=== PATIENT | female | born 1985 | race Caucasian/White ===

== ENCOUNTER → 2017-01-22 | Outpatient (REF) | payer OTHER ==
[2017-01-22 15:34] LABS: ALBUMIN 3.9 GM/DL (3.2-5.2); ALBUMIN/GLOBULIN RATIO 1.22 (1.00-1.93); ALKALINE PHOSPHATASE 56 U/L (45-117); ALT/SGPT 14 U/L (12-78); ANION GAP 6 MEQ/L (8-16); AST/SGOT 17 U/L (15-37); BILIRUBIN,TOTAL 0.5 MG/DL (0.2-1.0); BLOOD UREA NITROGEN 4 MG/DL (7-18); CALCIUM LEVEL 9.2 MG/DL (8.5-10.1); CARBON DIOXIDE LEVEL 29 MEQ/L (21-32); CHLORIDE LEVEL 107 MEQ/L (98-107); CORTISOL AM 5.6 UG/DL (4.3-22.4); CREATININE FOR GFR 0.64 MG/DL (0.55-1.02); FOLLICLE STIMULATING HORMONE 8.3 mIU/mL; GLOMERULAR FILTRATION RATE > 60.0 (>60); GLUCOSE, FASTING 81 MG/DL (70-105); POTASSIUM SERUM 4.2 MEQ/L (3.5-5.1); PROGESTERONE < 0.2 NG/ML; SODIUM LEVEL 142 MEQ/L (136-145); TOTAL PROTEIN 7.1 GM/DL (6.4-8.2)
[2017-01-27 00:11] LABS: ESTRONE SERUM 103 pg/mL (.); SEX HORMONE BINDING GLOBULIN 67.1 nmol/L (24.6-122.0)
== END ==
LOC: M LAB REF 14:30
PROVIDERS: ATTEND Obstetrics & Gynecology
DX: N95.9 Unspecified menopausal and perimenopausal disorder (principal)

== ENCOUNTER → 2017-02-18 | Outpatient (CLI) | payer OTHER ==
--- NOTE | 2017-02-18 09:45 | REP ---
Clinical: Infertility . Technique: Transvaginal ultrasound examination. Findings: Normal anteverted uterus measures 8.0 x 3.9 x 4.8 cm. Endometrial complex measures 10.3 mm thickness. Right ovary measures 2.6 x 2.3 x 3.1 cm and includes 12 mm follicle along with eight subcentimeter follicles. Left ovary measures 2.5 x 2.0 x 2.4 cm with three follicles measuring between 11 and 12 mm along with four subcentimeter follicles. Impression: Follicular study as described above. Signed by Gage Juarez MD 02/18/2017 09:36 A
[2017-02-18 10:19] LABS: HCG, SERUM QUANTITATIVE < 1.0 MIU/ML
[2017-02-18 11:17] LABS: LUTEINIZING HORMONE 10.8 mIU/mL; PROGESTERONE 0.3 NG/ML
[2017-02-18 11:18] LABS: FOLLICLE STIMULATING HORMONE 16.7 mIU/mL
== END ==
LOC: M RAD 08:28
PROVIDERS: ATTEND Obstetrics & Gynecology Reproductive Endocrinology
DX: N97.9 Female infertility, unspecified (principal)

== ENCOUNTER → 2017-02-20 | Outpatient (CLI) | payer OTHER ==
--- NOTE | 2017-02-20 09:42 | REP ---
Transvaginal pelvic sonography: History: Infertility. Findings: Uterine dimensions are 8.6 x 4.5 x 4.9 cm. Endometrial stripe is 0.9 cm thick. Tiny microcystic changes are seen in the endometrium. No free fluid is seen. No focal uterine mass is observed. There is a moderate amount of bowel gas visible today. The right ovary dimensions are 3.1 x 1.6 x 2.0 cm. There are eight follicles in the right ovary ranging in size from 0.3-0.5 cm. No larger follicles are seen in the right ovary today. The left ovary measures 4.3 x 2.5 x 2.4 cm. It contains a 1.2 x 1.1 cm follicle and five follicles ranging in size 0.2 to 0.9 cm. Impression: Transvaginal pelvic sonography follicle study as above. Signed by Jeet Thomas MD 02/20/2017 08:14 A
== END ==
LOC: M RAD 06:56
PROVIDERS: ATTEND Obstetrics & Gynecology Reproductive Endocrinology
DX: E28.2 Polycystic ovarian syndrome (principal)

== ENCOUNTER → 2017-02-26 | Outpatient (CLI) | payer OTHER ==
--- NOTE | 2017-02-26 08:50 | REP ---
Pelvic ultrasound with endovaginal imaging for follicle analysis: Right ovary: There are no follicles and a larger than 10 mm. There are four follicles measuring 5-9 mm. The right ovary is normal size measuring 2.8 x 2.3 x 3.0 cm. Left ovary: There are no follicles greater than 10 mm. There are three follicles measuring 2-4 mm. Left ovary is normal size measuring 1.9 x 1.4 x 2.0 cm. The endometrium is not thickened measuring 6.5 mm and has a homogeneous echotexture. The uterus is anteverted and normal size measuring 8.0 x 3.6 x 4.3 cm Signed by Pio Johnston MD 02/26/2017 08:41 A
[2017-02-26 10:38] LABS: LUTEINIZING HORMONE 10.7 mIU/mL; PROGESTERONE 0.4 NG/ML
== END ==
LOC: M RAD 07:27 → M LAB 07:27
PROVIDERS: ATTEND Obstetrics & Gynecology Reproductive Endocrinology
DX: N97.9 Female infertility, unspecified (principal)

== ENCOUNTER → 2017-03-10 | Outpatient (CLI) | payer OTHER ==
[2017-03-10 11:04] LABS: ESTRADIOL 56.2 PG/ML; PROGESTERONE 24.4 NG/ML
== END ==
LOC: M LAB 09:47
PROVIDERS: ATTEND Obstetrics & Gynecology Reproductive Endocrinology
DX: Z32.00 Encounter for pregnancy test, result unknown (principal)

== ENCOUNTER → 2017-03-17 | Outpatient (CLI) | payer OTHER ==
[2017-03-17 09:36] LABS: PROGESTERONE 3.6 NG/ML
== END ==
LOC: M LAB 06:06
PROVIDERS: ATTEND Obstetrics & Gynecology Reproductive Endocrinology
DX: Z32.00 Encounter for pregnancy test, result unknown (principal)

== ENCOUNTER → 2017-08-18 | Outpatient (CLI) | payer OTHER ==
[2017-08-18 13:52] LABS: ANION GAP 9 MEQ/L (8-16); BLOOD UREA NITROGEN 5 MG/DL (7-18); CALCIUM LEVEL 9.4 MG/DL (8.5-10.1); CARBON DIOXIDE LEVEL 26 MEQ/L (21-32); CHLORIDE LEVEL 108 MEQ/L (98-107); CREATININE FOR GFR 0.74 MG/DL (0.55-1.30); FREE T4 0.99 NG/DL (0.76-1.46); GLOMERULAR FILTRATION RATE > 60.0 (>60); GLUCOSE, FASTING 78 MG/DL (70-100); MAGNESIUM LEVEL 2.2 MG/DL (1.8-2.4); SODIUM LEVEL 143 MEQ/L (136-145)
== END ==
LOC: M LAB 11:31
DX: E03.9 Hypothyroidism, unspecified (principal)
CPT/HCPCS: 83735

== ENCOUNTER → 2017-12-01 | Outpatient (CLI) | payer OTHER ==
[2017-12-01 10:27] LABS: THYROID STIMULATING HORMONE 0.074 uIU/ML (0.358-3.740)
== END ==
LOC: M LAB 09:21
DX: E28.9 Ovarian dysfunction, unspecified (principal)
CPT/HCPCS: 84443

== ENCOUNTER → 2017-12-17 | Outpatient (CLI) | payer OTHER ==
[2017-12-17 12:38] LABS: FREE T3 3.6 PG/ML (2.2-4.0); FREE T4 1.19 NG/DL (0.76-1.46)
== END ==
LOC: M LAB 11:33
DX: E03.9 Hypothyroidism, unspecified (principal)
CPT/HCPCS: 84443

== ENCOUNTER → 2018-01-28 | Outpatient (CLI) | payer OTHER ==
[2018-01-28 16:37] LABS: FREE T3 2.7 PG/ML (2.2-4.0); FREE T4 0.82 NG/DL (0.76-1.46)
[2018-01-29 09:55] LABS: THYROGLOBULIN ANTIBODY > 500.0 U/ML (<60.0)
== END ==
LOC: M WUC 12:28
DX: R94.6 Abnormal results of thyroid function studies (principal)
CPT/HCPCS: 84443

== ENCOUNTER → 2018-08-12 | Outpatient (CLI) | payer OTHER ==
--- NOTE | 2018-08-12 21:00 | REP ---
Clinical: Lower back pain. Technique: AP, lateral, bilateral oblique and coned-down views of the lumbosacral spine. Findings: Alignment and lordosis maintained. Vertebral bodies are intact. Very minimal multilevel degenerative changes with subtle anterior spurring and minimal endplate sclerosis noted. Disc spaces are relatively well maintained. No acute fracture / compression injury or subluxation. No obvious spondylolysis. Impression: Mild degenerative changes suggested. Electronically Signed by Gage Juarez MD 08/12/2018 08:52 P
== END ==
LOC: M WUC 10:20
PROVIDERS: ATTEND Nurse Practitioner Family
DX: M54.5 Low back pain (principal)

== ENCOUNTER 2018-08-31 14:07 | Emergency (ER) | payer OTHER ==
[~2018-08-31] VITALS: Ht 152.4 cm; Wt 72.7 kg
[2018-08-31 14:08] VITALS: BP 122/87
[2018-08-31] MEDS ORDERED: LEVO25TA5 (14:20)
[2018-08-31] MEDS ORDERED: CYCL10TA (14:20)
[2018-08-31] MEDS ORDERED: TRAM50TA2 (14:20)
[2018-08-31] MEDS ORDERED: PYRI1TAB5 PO (15:36)
[2018-08-31] MEDS ORDERED: CIPR-249 PO (15:36)
== END 2018-08-31 15:42 | disposition home or self-care (01) ==
LOC: M ED 14:07
DX: N30.90 Cystitis, unspecified without hematuria (principal); E07.9 Disorder of thyroid, unspecified; G89.29 Other chronic pain; Z79.899 Other long term (current) drug therapy; Z88.0 Allergy status to penicillin; Z88.2 Allergy status to sulfonamides

== ENCOUNTER → 2018-08-31 | Outpatient (CLI) | payer OTHER ==
[~2018-08-31] MED LIST: CIPR-249 PO; CYCL10TA; LEVO25TA5; PYRI1TAB5 PO; TRAM50TA2
[2018-08-31 14:58] LABS: FREE T4 1.07 NG/DL (0.76-1.46); THYROID STIMULATING HORMONE 1.06 uIU/ML (0.358-3.740)
== END ==
LOC: M SMT 09:50
PROVIDERS: ATTEND Advanced Practice Midwife
DX: E03.9 Hypothyroidism, unspecified (principal)

== ENCOUNTER → 2018-09-06 | Outpatient (CLI) | payer OTHER ==
--- NOTE | 2018-09-06 09:23 | REP ---
Pelvic sonography: History: Infertility associated with anovulation. Pelvic and perineal pain. Findings: Transabdominal scanning demonstrates normal size uterus with dimensions of 8.8 x 3.4 x 5.0 cm. Endometrial echo 0.7 cm in thickness. No free fluid or focal uterine mass is seen. Normal right ovary is seen with dimensions of 2.5 x 1.2 x 1.8 cm. The left ovary measures 3.9 x 2.2 x 3.6 cm. There is a anechoic cyst in the left ovary 2.8 x 3.0 x 2.2 cm in diameter. Impression: Small simple cyst left ovary 3.0 cm in greatest diameter. Otherwise normal pelvic sonography. Electronically Signed by Jeet Thomas MD 09/06/2018 09:35 A
== END ==
LOC: M RAD 07:36
PROVIDERS: ATTEND Advanced Practice Midwife
DX: N83.202 Unspecified ovarian cyst, left side (principal); N97.0 Female infertility associated with anovulation; R10.2 Pelvic and perineal pain

== ENCOUNTER → 2018-11-16 | Outpatient (CLI) | payer OTHER ==
[~2018-11-16] MED LIST changes: +ISOVUE-370 76% 100ML VIAL (Q9967) As Ordered ONE
--- NOTE | 2018-11-16 14:46 | REP ---
HYSTEROSALPINGOGRAM: Patient was referred for hysterosalpingogram. Referring clinician catheterized the cervix and injected contrast. I obtained multiple spot radiographs. Injection of contrast into the uterine cavity was performed multiple times with resistance encountered and resultant expulsion of the catheter balloon back through the cervix into the vagina. Uterine cavity is observed filled with contrast on multiple images and appears normal in contour with no filling defects. There is opacification of the bilateral fallopian tubes through the cornual portions into the ampullary portions. However, there was not definite free intraperitoneal spillage of contrast. IMPRESSION: Bilateral fallopian tubes demonstrate opacification with contrast up to the ampullary portions, but there is no free intraperitoneal spillage and, therefore, the fallopian tubes are not definitely patent. 2 minutes fluoroscopy time utilized for the procedure. Electronically Signed by Pio Tubbs MD 11/16/2018 08:12 P
== END ==
LOC: M RADPRO 11:42
PROVIDERS: ATTEND Obstetrics & Gynecology
DX: N97.0 Female infertility associated with anovulation (principal)
CPT/HCPCS: 58340; 74740; Q9967

== ENCOUNTER → 2018-12-24 | Outpatient (CLI) | payer OTHER ==
[~2018-12-24] MED LIST changes: -ISOVUE-370 76% 100ML VIAL (Q9967) As Ordered ONE
--- NOTE | 2018-12-24 13:48 | REP ---
PA and lateral chest: Comparison is 02/26/2005. There is again obscuration the right cardiac margin. Upon review of and abdomen - pelvis CT dated 11/17/2013, there is a large right epicardial fat pad likely resulting in this obscuration. Sternotomy wires and cardiac valve replacement are again identified, unchanged. The lung wilson otherwise clear. Cardiac size is minimally enlarged, unchanged. The debra, mediastinum, and skeletal structures are unremarkable. Impression: There are no acute cardial pulmonary findings. 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 There are postsurgical changes as described. Electronically Signed by Pio Johnston MD 12/24/2018 01:40 P
== END ==
LOC: M RAD 12:16
PROVIDERS: ATTEND Pediatrics Pediatric Cardiology
DX: Q21.3 Tetralogy of Fallot (principal); R07.89 Other chest pain

== ENCOUNTER → 2019-02-03 | Outpatient (CLI) | payer OTHER ==
[2019-02-03 13:22] LABS: BASO % 0.3 % (0.0-1.0); EOS # 0.1 10^3/uL (0.0-0.50); EOS % 1.6 % (0.0-3.0); HEMATOCRIT 41.1 % (36.0-47.0); HEMOGLOBIN 14.1 g/dl (12.0-15.5); LYMPH # 1.3 10^3/uL (1.5-4.5); LYMPH % 21.9 % (24.0-44.0); MEAN CORPUSCULAR HEMOGLOBIN 30.3 pg (27.0-33.0); MEAN CORPUSCULAR HGB CONC 34.3 g/dl (32.0-36.5); MEAN CORPUSCULAR VOLUME 88.2 fl (80.0-96.0); MONO # 0.4 10^3/uL (0.0-0.8); MONO % 6.4 % (0.0-5.0); NEUTROPHILS % 69.3 % (36.0-66.0); PLATELET COUNT, AUTOMATED 280 10^3/uL (150-450); RED BLOOD COUNT 4.66 10^6/uL (4.00-5.40); WHITE BLOOD COUNT 5.8 10^3/uL (4.0-10.0)
[2019-02-03 13:55] LABS: ALBUMIN 3.8 GM/DL (3.2-5.2); ALT/SGPT 12 U/L (12-78); BILIRUBIN,TOTAL 0.8 MG/DL (0.2-1.0); BLOOD UREA NITROGEN 4 MG/DL (7-18); CALCIUM LEVEL 9.1 MG/DL (8.5-10.1); CARBON DIOXIDE LEVEL 26 MEQ/L (21-32); CHLORIDE LEVEL 107 MEQ/L (98-107); CREATININE FOR GFR 0.65 MG/DL (0.55-1.30); FREE T4 1.03 NG/DL (0.76-1.46); GLOMERULAR FILTRATION RATE > 60.0 (>60); GLUCOSE, FASTING 79 MG/DL (70-100); POTASSIUM SERUM 3.5 MEQ/L (3.5-5.1); SODIUM LEVEL 141 MEQ/L (136-145); TOTAL PROTEIN 6.5 GM/DL (6.4-8.2)
[2019-02-03 15:23] LABS: HEMOGLOBIN A1c 4.6 %
== END ==
LOC: M WUC 09:41
PROVIDERS: ATTEND Physician Assistant
DX: Z13.29 Encounter for screening for other suspected endocrine disorder (principal)

== ENCOUNTER → 2020-02-20 | Outpatient (CLI) | payer OTHER ==
[~2020-02-20] MED LIST changes: +CYCL-707; -CYCL10TA
[2020-02-20 14:21] LABS: FOLLICLE STIMULATING HORMONE 7.8 mIU/mL; FREE T4 0.88 NG/DL (0.76-1.46); LUTEINIZING HORMONE 8.4 mIU/mL; THYROID STIMULATING HORMONE 5.9 uIU/ML (0.358-3.740)
--- NOTE | 2020-03-08 08:38 | REP ---
PELVIC SONOGRAPHY HISTORY: Pelvic pain. Excessive and frequent menstruation with irregular cycle. FINDINGS: Transabdominal and transvaginal scanning are included. Uterine dimensions are normal at 9.0 x 4.5 x 3.8 cm. Endometrial echo is 1.4 cm thick. There are tiny cystic changes in the endometrium on transvaginal imaging. No focal uterine mass is seen. Visualized urinary bladder hart are smooth. No free fluid is noted. There is a 2.0 cm follicle cyst in the left ovary. Left ovarian dimensions are 3.3 x 2.6 x 1.4 cm. Right ovary measures 2.4 x 1.4 x 1.9 cm. Doppler flow is visualized bilaterally in the ovaries. IMPRESSION: No significant morphologic abnormality. MTDD
== END ==
LOC: M RAD 12:22
PROVIDERS: ATTEND Obstetrics & Gynecology
DX: N92.1 Excessive and frequent menstruation with irregular cycle (principal); N94.5 Secondary dysmenorrhea; E03.9 Hypothyroidism, unspecified; N83.02 Follicular cyst of left ovary

== ENCOUNTER → 2020-03-22 | Outpatient (CLI) | payer OTHER ==
[2020-03-22 13:39] LABS: BASO % 0.6 % (0.0-1.0); EOS # 0.1 10^3/uL (0.0-0.5); EOS % 1.6 % (0.0-3.0); HEMATOCRIT 46.3 % (36.0-47.0); HEMOGLOBIN 15.3 g/dl (12.0-15.5); LYMPH # 1.2 10^3/uL (1.5-5.0); LYMPH % 19.8 % (24.0-44.0); MEAN CORPUSCULAR VOLUME 90.8 fl (80.0-96.0); MONO # 0.4 10^3/uL (0.0-0.8); MONO % 5.8 % (0.0-5.0); NEUTROPHILS # 4.4 10^3/uL (1.5-8.5); NEUTROPHILS % 71.7 % (36.0-66.0); PLATELET COUNT, AUTOMATED 234 10^3/uL (150-450); WHITE BLOOD COUNT 6.2 10^3/uL (4.0-10.0)
[2020-03-22 14:32] LABS: ALBUMIN 3.8 GM/DL (3.2-5.2); ALT/SGPT 19 U/L (12-78); BILIRUBIN,TOTAL 0.7 MG/DL (0.2-1.0); BLOOD UREA NITROGEN 6 MG/DL (7-18); CALCIUM LEVEL 9.3 MG/DL (8.5-10.1); CARBON DIOXIDE LEVEL 27 MEQ/L (21-32); CHLORIDE LEVEL 109 MEQ/L (98-107); CREATININE FOR GFR 0.66 MG/DL (0.55-1.30); FREE T4 0.88 NG/DL (0.76-1.46); GLOMERULAR FILTRATION RATE > 60.0 (>60); GLUCOSE, FASTING 77 MG/DL (70-100); POTASSIUM SERUM 3.8 MEQ/L (3.5-5.1); SODIUM LEVEL 141 MEQ/L (136-145); TOTAL PROTEIN 7.4 GM/DL (6.4-8.2)
[2020-03-22 16:19] LABS: TOTAL 25(OH) VITAMIN D 23.9 NG/ML (30.0-100.0)
== END ==
LOC: M WUC 10:04
PROVIDERS: ATTEND Physician Assistant
DX: R94.6 Abnormal results of thyroid function studies (principal)

== ENCOUNTER → 2020-07-16 | Outpatient (CLI) | payer OTHER ==
[2020-07-16 16:39] LABS: BASO % 0.5 % (0.0-1.0); EOS # 0.1 10^3/uL (0.0-0.5); EOS % 1.4 % (0.0-3.0); HEMATOCRIT 46.5 % (36.0-47.0); HEMOGLOBIN 15.2 g/dl (12.0-15.5); LYMPH % 15.4 % (24.0-44.0); MEAN CORPUSCULAR HEMOGLOBIN 29.5 pg (27.0-33.0); MEAN CORPUSCULAR HGB CONC 32.7 g/dl (32.0-36.5); MEAN CORPUSCULAR VOLUME 90.3 fl (80.0-96.0); MONO # 0.3 10^3/uL (0.0-0.8); MONO % 4.6 % (0.0-5.0); NEUTROPHILS # 4.9 10^3/uL (1.5-8.5); NEUTROPHILS % 77.8 % (36.0-66.0); PLATELET COUNT, AUTOMATED 245 10^3/uL (150-450); RED BLOOD COUNT 5.15 10^6/uL (4.00-5.40); WHITE BLOOD COUNT 6.3 10^3/uL (4.0-10.0)
[2020-07-16 17:13] LABS: ALBUMIN 4.1 GM/DL (3.2-5.2); ALT/SGPT 20 U/L (12-78); BILIRUBIN,TOTAL 0.5 MG/DL (0.2-1.0); BLOOD UREA NITROGEN 7 MG/DL (7-18); CALCIUM LEVEL 9.7 MG/DL (8.5-10.1); CARBON DIOXIDE LEVEL 22 MEQ/L (21-32); CHLORIDE LEVEL 110 MEQ/L (98-107); CREATININE FOR GFR 0.81 MG/DL (0.55-1.30); FREE T4 0.79 NG/DL (0.76-1.46); GLOMERULAR FILTRATION RATE > 60.0 (>60); GLUCOSE, FASTING 94 MG/DL (70-100); POTASSIUM SERUM 3.3 MEQ/L (3.5-5.1); RHEUMATOID FACTOR QUANT < 10.0 IU/ML (<15.0); SODIUM LEVEL 142 MEQ/L (136-145); TOTAL PROTEIN 7.3 GM/DL (6.4-8.2); VITAMIN B12 LEVEL 248 PG/ML
[2020-07-16 17:15] LABS: FOLATE 9.3 NG/ML
[2020-07-16 17:19] LABS: ERYTHROCYTE SEDIMENTATION RATE 11 mm/hr (0-20)
== END ==
LOC: M WUC 10:47
PROVIDERS: ATTEND Physician Assistant
DX: M51.17 Intervertebral disc disorders with radiculopathy, lumbosacral region (principal)

== ENCOUNTER → 2020-10-01 | Outpatient (CLI) | payer OTHER ==
[2020-10-01 11:04] LABS: BASO % 0.8 % (0.0-1.0); EOS # 0.1 10^3/uL (0.0-0.5); HEMATOCRIT 46.3 % (36.0-47.0); HEMOGLOBIN 15.1 g/dl (12.0-15.5); LYMPH # 1.2 10^3/uL (1.5-5.0); LYMPH % 25.3 % (24.0-44.0); MEAN CORPUSCULAR HEMOGLOBIN 29.1 pg (27.0-33.0); MEAN CORPUSCULAR HGB CONC 32.6 g/dl (32.0-36.5); MEAN CORPUSCULAR VOLUME 89.2 fl (80.0-96.0); MONO # 0.4 10^3/uL (0.0-0.8); MONO % 7.4 % (2.0-8.0); NEUTROPHILS % 63.1 % (36.0-66.0); PLATELET COUNT, AUTOMATED 261 10^3/uL (150-450); RED BLOOD COUNT 5.19 10^6/uL (4.00-5.40); WHITE BLOOD COUNT 4.7 10^3/uL (4.0-10.0)
[2020-10-01 11:44] LABS: ALT/SGPT 15 U/L (12-78); BILIRUBIN,TOTAL 0.7 MG/DL (0.2-1.0); BLOOD UREA NITROGEN 5 MG/DL (7-18); CARBON DIOXIDE LEVEL 29 MEQ/L (21-32); CHLORIDE LEVEL 108 MEQ/L (98-107); CREATININE FOR GFR 0.79 MG/DL (0.55-1.30); FREE T4 1.43 NG/DL (0.76-1.46); GLOMERULAR FILTRATION RATE > 60.0 (>60); GLUCOSE, FASTING 84 MG/DL (70-100); POTASSIUM SERUM 3.6 MEQ/L (3.5-5.1); SODIUM LEVEL 142 MEQ/L (136-145); THYROID STIMULATING HORMONE 0.012 uIU/ML (0.358-3.740); TOTAL 25(OH) VITAMIN D 30.4 NG/ML (30.0-100.0); TOTAL PROTEIN 7.4 GM/DL (6.4-8.2)
== END ==
LOC: M WUC 08:01
PROVIDERS: ATTEND Physician Assistant
DX: J45.30 Mild persistent asthma, uncomplicated (principal); E55.9 Vitamin D deficiency, unspecified

== ENCOUNTER → 2020-11-02 | Outpatient (CLI) | payer OTHER ==
[2020-11-02 12:35] LABS: FREE T4 1.12 NG/DL (0.76-1.46); THYROID STIMULATING HORMONE 0.038 uIU/ML (0.358-3.740)
== END ==
LOC: M WUC 08:03
PROVIDERS: ATTEND Physician Assistant
DX: E03.9 Hypothyroidism, unspecified (principal); E55.9 Vitamin D deficiency, unspecified

== ENCOUNTER → 2020-12-05 | Outpatient (CLI) | payer OTHER ==
[2020-12-05 10:29] LABS: FREE T4 1.02 NG/DL (0.76-1.46); THYROID STIMULATING HORMONE 0.758 uIU/ML (0.358-3.740)
== END ==
LOC: M WUC 08:04
PROVIDERS: ATTEND Physician Assistant
DX: E03.9 Hypothyroidism, unspecified (principal)

== ENCOUNTER → 2021-01-01 | Outpatient (CLI) | payer OTHER ==
[2021-01-01 12:55] LABS: BASO % 0.4 % (0.0-1.0); EOS # 0.1 10^3/uL (0.0-0.5); EOS % 0.8 % (0.0-3.0); HEMATOCRIT 44.1 % (36.0-47.0); HEMOGLOBIN 14.6 g/dl (12.0-15.5); LYMPH # 1.2 10^3/uL (1.5-5.0); LYMPH % 15.3 % (24.0-44.0); MEAN CORPUSCULAR HEMOGLOBIN 29.4 pg (27.0-33.0); MEAN CORPUSCULAR HGB CONC 33.1 g/dl (32.0-36.5); MEAN CORPUSCULAR VOLUME 88.7 fl (80.0-96.0); MONO # 0.4 10^3/uL (0.0-0.8); NEUTROPHILS % 78.1 % (36.0-66.0); PLATELET COUNT, AUTOMATED 252 10^3/uL (150-450); RED BLOOD COUNT 4.97 10^6/uL (4.00-5.40); WHITE BLOOD COUNT 7.7 10^3/uL (4.0-10.0)
[2021-01-01 13:15] LABS: ALT/SGPT 14 U/L (12-78); BILIRUBIN,TOTAL 0.7 MG/DL (0.2-1.0); BLOOD UREA NITROGEN 6 MG/DL (7-18); C REACTIVE PROTEIN QUANTITATIV 0.79 MG/DL (0.00-0.30); CALCIUM LEVEL 9.1 MG/DL (8.5-10.1); CARBON DIOXIDE LEVEL 24 MEQ/L (21-32); CHLORIDE LEVEL 112 MEQ/L (98-107); CPK CREATINE PHOSPHOKINASE 39 U/L (26-192); CREATININE FOR GFR 0.78 MG/DL (0.55-1.30); GLOMERULAR FILTRATION RATE > 60.0 (>60); GLUCOSE, FASTING 84 MG/DL (70-100); POTASSIUM SERUM 3.6 MEQ/L (3.5-5.1); RHEUMATOID FACTOR QUANT < 10.0 IU/ML (<15.0); SODIUM LEVEL 141 MEQ/L (136-145); TOTAL PROTEIN 7.1 GM/DL (6.4-8.2)
[2021-01-01 13:54] LABS: ERYTHROCYTE SEDIMENTATION RATE 6 mm/hr (0-20)
== END ==
LOC: M WUC 11:12
PROVIDERS: ATTEND Internal Medicine Rheumatology
DX: M35.3 Polymyalgia rheumatica (principal)

== ENCOUNTER → 2021-02-22 | Outpatient (CLI) | payer OTHER ==
[~2021-02-22] MED LIST changes: +GABA-282 PO; +LEVO50CA PO; +LEVO75TA4 PO; +OXYC1TAB23 PO; +TOPA50TA8 PO; +VENTAER INH
== END ==
LOC: M RAD 07:05
PROVIDERS: ATTEND Obstetrics & Gynecology
DX: R10.2 Pelvic and perineal pain (principal)

== ENCOUNTER → 2021-03-29 | Outpatient (CLI) | payer OTHER ==
[~2021-03-29] MED LIST changes: -OXYC1TAB23 PO
== END ==
LOC: M LABSMTC 09:06
PROVIDERS: ATTEND Anesthesiology
DX: Z01.812 Encounter for preprocedural laboratory examination (principal); Z20.822 Contact with and (suspected) exposure to COVID-19

== ENCOUNTER 2021-04-03 12:46 | Day surgery (SDC) | payer OTHER ==
[~2021-04-03] VITALS: Ht 152.4 cm; Wt 71.6 kg
[~2021-04-03 12:46] MED LIST changes: +ACETAMINOPHEN *IV* 1,000 MG IV ONE; +ACETAMINOPHEN 1000MG 100ML IV BTL (OFIRMEV) (J0131 PER 10MG) As Ordered ONE; +HYDROmorphone HCL 2 MG/ML 1ML VIAL As Ordered ONE; +KETOROLAC 60MG 2ML VIAL As Ordered ONE; +LIDOCAINE 1% MDV 20ML VIAL SQ PRN; +LIDOCAINE 2% 100MG/5ML SDV (FOR ANES.) As Ordered ONE; +LR 1,000 ML IV ONE; +MIDAZOLAM INJ 2MG/2ML VIAL (J2250 PER 1MG) As Ordered ONE; +ONDANSETRON 4MG/2ML VIAL As Ordered ONE; +OXYC1TAB23 PO; +ROCURONIUM BROMIDE 50 MG/5 ML VIAL As Ordered ONE; +SUGAMMADEX SODIUM 500 MG/5 ML VIAL (BRIDION) As Ordered ONE; +ceFAZolin SOD 2 GM in IV 1 EA IV ONE; +dexameTHASONE 4 MG/ML 1ML VIAL (J1100 PER 1MG) As Ordered ONE; +fentaNYL 100 MCG/2 ML INJECTION (J3010) As Ordered ONE; +propofoL 200 MG/20 ML VIAL As Ordered ONE
[2021-04-03 13:45] LABS: HEMATOCRIT 45.9 % (36.0-47.0); HEMOGLOBIN 15.6 g/dl (12.0-15.5); MEAN CORPUSCULAR HEMOGLOBIN 30.4 pg (27.0-33.0); MEAN CORPUSCULAR VOLUME 89.5 fl (80.0-96.0); PLATELET COUNT, AUTOMATED 264 10^3/uL (150-450); RED BLOOD COUNT 5.13 10^6/uL (4.00-5.40); WHITE BLOOD COUNT 7.9 10^3/uL (4.0-10.0)
[2021-04-03 14:02] LABS: BLOOD UREA NITROGEN 5 MG/DL (7-18); CALCIUM LEVEL 9.6 MG/DL (8.5-10.1); CARBON DIOXIDE LEVEL 28 MEQ/L (21-32); CHLORIDE LEVEL 107 MEQ/L (98-107); GLOMERULAR FILTRATION RATE > 60.0 (>60); GLUCOSE, FASTING 96 MG/DL (70-100); POTASSIUM SERUM 3.7 MEQ/L (3.5-5.1); SODIUM LEVEL 138 MEQ/L (136-145)
[2021-04-03] MEDS ORDERED: BUPIVACAINE/EPIN 0.25% 30 ML VIAL As Ordered ONE (14:16)
[2021-04-03] MEDS ORDERED: FLUORESCEIN 10% (100MG/ML) 5 ML VIAL As Ordered ONE (14:16)
[2021-04-03] MEDS ORDERED: PHENYLEPHRINE 10MG/ML 1ML VIAL (J2370 PER 1) As Ordered ONE (14:21)
[2021-04-03] MEDS ORDERED: VANCOMYCIN 1000MG/20ML VIAL As Ordered ONE (14:30)
[2021-04-03] MEDS ORDERED: VANCOMYCIN HCL 1,000 MG, VIAL MATE ADAPTER 1 EACH in NS 250 ML IV ONE (14:45)
[2021-04-03] MEDS ORDERED: fentaNYL 100 MCG/2 ML INJECTION (J3010) IV PRN (16:40)
[2021-04-03] MEDS ORDERED: METOCLOPRAMIDE INJ 10MG/2ML VIAL (J2765 PER 1) IV PRN (16:40)
[2021-04-03] MEDS ORDERED: HYDROMORPHONE HCL 0.5 MG/ 0.5 ML SYRINGE (J1170 PER 1) IV PRN (16:40)
[2021-04-03] MEDS ORDERED: LR 1,000 ML IV SCH ×2 (16:40→16:50)
[2021-04-03] MEDS ORDERED: ONDANSETRON 4MG/2ML VIAL IV PRN (16:40)
[2021-04-03] MEDS ORDERED: oxyCODONE 5MG TAB PO PRN (16:40)
[2021-04-03] MEDS ORDERED: PERCOCET 5MG/325MG TAB PO PRN (16:50)
[2021-04-03] MEDS ORDERED: IBUPROFEN 800 MG TAB PO SCH (18:00)
[2021-04-03 18:50] VITALS: BP 114/69
--- NOTE | 2021-04-04 08:37 | RO ---
OPERATIVE NOTE DATE OF OPERATION: 04/03/2021 PREOPERATIVE DIAGNOSES: 1. Pelvic pain. 2. Excessive menstruation. POSTOPERATIVE DIAGNOSES: 1. Pelvic pain. 2. Excessive menstruation. PROCEDURES: 1. Robotic-assisted total hysterectomy. 2. Bilateral removal of both fallopian tubes. 3. Cystoscopy. SURGEON: Kel Garcia DO NUT PROCESSING SUPERVISOR: Cherelle Denis ANESTHESIA: General. COMPLICATIONS: None. ESTIMATED BLOOD LOSS: 40 mL. SPECIMEN SENT TO THE LAB: Uterus, cervix and bilateral fallopian tubes. INDICATIONS: Sofia is a 35-year-old female with extensive history of pelvic pain, excessive menstrual cycle. After counseling the decision was made to proceed with robotic-assisted total hysterectomy removal of both tubes. FINDINGS: Normal-appearing uterus, tubes and ovaries. On cystoscopy bilateral ureteral jets were noted with no evidence of any bladder injury. DESCRIPTION OF PROCEDURE: After obtaining informed consent, the patient was taken to the operating room where general anesthetic was found to be adequate. She was then prepped and draped in usual sterile fashion in dorsal lithotomy position. At this point a Andrade catheter was placed in the bladder for drainage. We then placed weighted speculum in posterior fornix of the vagina. Using Burton retractor, HUMI II uterine manipulator was placed. Attention was turned to the abdomen where 5 mm infraumbilical incision was made. Using Veress needle the abdomen was insufflated with CO2 gas to approximately 3.5 liters. Then two left lateral 8 mm ports were placed under direct visualization and 8 mm right lateral port placed under direct visualization. The patient was placed in steep Trendelenburg. The robot was brought to the patient's right side. The camera port was then docked. After docking the camera port proper targeting test was performed. After passing the test the remaining arm 1 and arm 2 were docked in the usual fashion. At this point a vessel sealer was placed in arm 2 and bipolar grasper in arm 1. I then unscrubbed and went to the surgeon console. The pelvis was inspected. The fallopian tube was identified. The mesosalpinx was transected using the vessel sealer all the way down to the uteroovarian ligament. The uteroovarian ligament as well as round ligament were cauterized and cut in similar fashion. This was taken down to include the uterine arteries. At this point the anterior leaflet of the broad ligament was dissected to create an anterior bladder flap. The opposite side was done in similar fashion. The bladder was pushed out of the operative field completely. The vessel sealer was then removed and Endoshears placed. Anterior and posterior colpotomy was performed. The uterus and bilateral fallopian tubes were removed through the vagina. Moistened sponge lap was placed in the vagina to maintain pneumoperitoneum. At this point the vaginal cuff was closed using 2-0 V-Loc suture in running fashion. The peritoneum over the vaginal cuff was also closed in similar fashion. Pelvis was copiously irrigated with normal saline and suctioned out. 1 mL of Fluorescein was given by the anesthesiologist to assist in cystoscopy. I then rescrubbed and went to the patient's side, retrogradely filled the bladder with 230 mL of normal saline. The Andrade catheter was removed. The cystoscope was inserted. Bilateral ureteral jets noted, no evidence of any bladder injury noted. At this point the cystoscope was removed, Andrade catheter was placed in the bladder for drainage. I then turned my attention to the abdomen where the trocars were removed and the trocar sites were closed using 3-0 Vicryl in subcuticular fashion. 0.25% Marcaine was placed for postoperative pain. The patient tolerated the procedure well. She was transferred to the recovery room in stable condition. cc: [facility]
== END 2021-04-03 19:00 | disposition home or self-care (01) ==
LOC: M SDC 12:46
PROVIDERS: ATTEND Obstetrics & Gynecology
DX: N85.8 Other specified noninflammatory disorders of uterus (principal); N72 Inflammatory disease of cervix uteri; N92.1 Excessive and frequent menstruation with irregular cycle; N94.6 Dysmenorrhea, unspecified; E03.9 Hypothyroidism, unspecified; H91.91 Unspecified hearing loss, right ear; J45.909 Unspecified asthma, uncomplicated; Z95.2 Presence of prosthetic heart valve; K21.9 Gastro-esophageal reflux disease without esophagitis; Z86.2 Personal history of diseases of the blood and blood-forming organs and certain disorders involving the immune mechanism; Z88.0 Allergy status to penicillin; Z88.2 Allergy status to sulfonamides; Z79.899 Other long term (current) drug therapy; Z79.51 Long term (current) use of inhaled steroids
CPT/HCPCS: 36415; 58571; 80048; 81025; 85027; 86850; 86900; 86901; 88307; J0131; J0690; J1100; J1170; J1885; J2250; J2370; J2405; J3010; J3370; S2900

== ENCOUNTER → 2021-04-08 | Outpatient (CLI) | payer OTHER ==
[~2021-04-08] MED LIST changes: -ACETAMINOPHEN *IV* 1,000 MG IV ONE; -ACETAMINOPHEN 1000MG 100ML IV BTL (OFIRMEV) (J0131 PER 10MG) As Ordered ONE; -HYDROmorphone HCL 2 MG/ML 1ML VIAL As Ordered ONE; -KETOROLAC 60MG 2ML VIAL As Ordered ONE; -LIDOCAINE 1% MDV 20ML VIAL SQ PRN; -LIDOCAINE 2% 100MG/5ML SDV (FOR ANES.) As Ordered ONE; -LR 1,000 ML IV ONE; -MIDAZOLAM INJ 2MG/2ML VIAL (J2250 PER 1MG) As Ordered ONE; -ONDANSETRON 4MG/2ML VIAL As Ordered ONE; -ROCURONIUM BROMIDE 50 MG/5 ML VIAL As Ordered ONE; -SUGAMMADEX SODIUM 500 MG/5 ML VIAL (BRIDION) As Ordered ONE; -ceFAZolin SOD 2 GM in IV 1 EA IV ONE; -dexameTHASONE 4 MG/ML 1ML VIAL (J1100 PER 1MG) As Ordered ONE; -fentaNYL 100 MCG/2 ML INJECTION (J3010) As Ordered ONE; -propofoL 200 MG/20 ML VIAL As Ordered ONE
[2021-04-08 10:57] LABS: BASO % 0.5 % (0.0-1.0); EOS # 0.2 10^3/uL (0.0-0.5); EOS % 1.9 % (0.0-3.0); HEMATOCRIT 46.9 % (36.0-47.0); HEMOGLOBIN 15.4 g/dl (12.0-15.5); LYMPH # 1.3 10^3/uL (1.5-5.0); LYMPH % 16.8 % (24.0-44.0); MEAN CORPUSCULAR HEMOGLOBIN 29.7 pg (27.0-33.0); MEAN CORPUSCULAR HGB CONC 32.8 g/dl (32.0-36.5); MEAN CORPUSCULAR VOLUME 90.5 fl (80.0-96.0); MONO # 0.3 10^3/uL (0.0-0.8); MONO % 4.3 % (2.0-8.0); NEUTROPHILS # 5.9 10^3/uL (1.5-8.5); NEUTROPHILS % 76.1 % (36.0-66.0); PLATELET COUNT, AUTOMATED 262 10^3/uL (150-450); RED BLOOD COUNT 5.18 10^6/uL (4.00-5.40); WHITE BLOOD COUNT 7.7 10^3/uL (4.0-10.0)
[2021-04-08 11:10] LABS: ALBUMIN 3.8 GM/DL (3.2-5.2); ALT/SGPT 16 U/L (12-78); BILIRUBIN,TOTAL 0.8 MG/DL (0.2-1.0); BLOOD UREA NITROGEN 8 MG/DL (7-18); CALCIUM LEVEL 9.2 MG/DL (8.5-10.1); CARBON DIOXIDE LEVEL 28 MEQ/L (21-32); CHLORIDE LEVEL 108 MEQ/L (98-107); CREATININE FOR GFR 0.83 MG/DL (0.55-1.30); FREE T4 1.39 NG/DL (0.76-1.46); GLOMERULAR FILTRATION RATE > 60.0 (>60); GLUCOSE, FASTING 92 MG/DL (70-100); POTASSIUM SERUM 3.7 MEQ/L (3.5-5.1); SODIUM LEVEL 140 MEQ/L (136-145)
[2021-04-08 12:35] LABS: TOTAL 25(OH) VITAMIN D 38.8 NG/ML (30.0-100.0)
== END ==
LOC: M WUC 08:08
PROVIDERS: ATTEND Physician Assistant
DX: E03.9 Hypothyroidism, unspecified (principal)

== ENCOUNTER → 2021-07-23 | Outpatient (REF) | payer OTHER | LOC: M LAB REF 17:21 | PROVIDERS: ATTEND Physician Assistant | DX: J20.9 Acute bronchitis, unspecified (principal) ==

== ENCOUNTER → 2021-09-12 | Outpatient (REF) | payer OTHER ==
[2021-09-12 12:42] LABS: APPEARANCE, URINE MANUAL CLEAR (CLEAR); COLOR, URINE MANUAL YELLOW (YELLOW); PROTEIN, URINE MANUAL NEGATIVE (NEGATIVE)
[2021-09-12 12:43] LABS: BILIRUBIN, URINE MANUAL NEGATIVE (NEGATIVE); BLOOD URINE MANUAL NEGATIVE (NEGATIVE); GLUCOSE, URINE (UA) MANUAL NEGATIVE (NEGATIVE); KETONE, URINE MANUAL NEGATIVE (NEGATIVE); LEUKOCYTE ESTERASE, URINE MAN NEGATIVE (NEGATIVE); NITRITE, URINE MANUAL NEGATIVE (NEGATIVE); UROBILINOGEN, URINE MANUAL NORMAL (NORMAL)
[2021-09-12 12:50] LABS: BASO % 0.5 % (0.0-1.0); EOS # 0.2 10^3/uL (0.0-0.5); EOS % 3.8 % (0.0-3.0); HEMATOCRIT 43.7 % (36.0-47.0); HEMOGLOBIN 14.4 g/dl (12.0-15.5); LYMPH # 1.4 10^3/uL (1.5-5.0); LYMPH % 21.6 % (24.0-44.0); MEAN CORPUSCULAR HEMOGLOBIN 30.2 pg (27.0-33.0); MEAN CORPUSCULAR VOLUME 91.6 fl (80.0-96.0); MONO # 0.5 10^3/uL (0.0-0.8); MONO % 7.3 % (2.0-8.0); NEUTROPHILS # 4.3 10^3/uL (1.5-8.5); NEUTROPHILS % 66.3 % (36.0-66.0); PLATELET COUNT, AUTOMATED 256 10^3/uL (150-450); RED BLOOD COUNT 4.77 10^6/uL (4.00-5.40); WHITE BLOOD COUNT 6.4 10^3/uL (4.0-10.0)
[2021-09-12 13:20] LABS: TOTAL PROTEIN,RANDOM URINE 19.9 MG/DL (0.0-12.0)
[2021-09-12 13:29] LABS: ALBUMIN 3.9 GM/DL (3.2-5.2); ALT/SGPT 26 U/L (12-78); BILIRUBIN,TOTAL 0.4 MG/DL (0.2-1.0); BLOOD UREA NITROGEN 6 MG/DL (7-18); C REACTIVE PROTEIN QUANTITATIV 0.59 MG/DL (0.00-0.30); CALCIUM LEVEL 9.2 MG/DL (8.5-10.1); CARBON DIOXIDE LEVEL 26 MEQ/L (21-32); CHLORIDE LEVEL 110 MEQ/L (98-107); CREATININE FOR GFR 0.68 MG/DL (0.55-1.30); GLOMERULAR FILTRATION RATE > 60.0 (>60); GLUCOSE, FASTING 46 MG/DL (70-100); LDH LACTATE DEHYDROGENASE 169 U/L (84-246); POTASSIUM SERUM 3.8 MEQ/L (3.5-5.1); SODIUM LEVEL 141 MEQ/L (136-145); TOTAL PROTEIN 6.8 GM/DL (6.4-8.2)
[2021-09-12 13:37] LABS: ERYTHROCYTE SEDIMENTATION RATE 6 mm/hr (0-20)
== END ==
LOC: M SFHCRHEU 09:48
PROVIDERS: ATTEND Internal Medicine Rheumatology
DX: M35.3 Polymyalgia rheumatica (principal); R76.8 Other specified abnormal immunological findings in serum; R53.1 Weakness

== ENCOUNTER → 2021-10-08 | Outpatient (CLI) | payer OTHER ==
[2021-10-08 11:01] LABS: FREE T4 0.89 NG/DL (0.76-1.46); THYROID STIMULATING HORMONE 1.53 uIU/ML (0.358-3.740)
[2021-10-08 11:03] LABS: TOTAL 25(OH) VITAMIN D 63.2 NG/ML (30.0-100.0)
== END ==
LOC: M WUC 08:12
PROVIDERS: ATTEND Physician Assistant
DX: E03.9 Hypothyroidism, unspecified (principal)

== ENCOUNTER → 2021-11-12 | Outpatient (CLI) | payer OTHER | LOC: M WUC 10:51 | PROVIDERS: ATTEND Family Medicine | DX: M25.562 Pain in left knee (principal); M25.561 Pain in right knee; M25.572 Pain in left ankle and joints of left foot ==

== ENCOUNTER → 2022-01-13 | Outpatient (CLI) | payer OTHER ==
[2022-01-13 10:37] LABS: ALBUMIN 3.5 GM/DL (3.2-5.2); ALT/SGPT 36 U/L (12-78); BILIRUBIN,TOTAL 0.5 MG/DL (0.2-1.0); BLOOD UREA NITROGEN 5 MG/DL (7-18); CALCIUM LEVEL 8.6 MG/DL (8.5-10.1); CARBON DIOXIDE LEVEL 26 MEQ/L (21-32); CHLORIDE LEVEL 109 MEQ/L (98-107); CREATININE FOR GFR 0.82 MG/DL (0.55-1.30); FREE T4 1.11 NG/DL (0.76-1.46); GLOMERULAR FILTRATION RATE > 60.0 (>60); GLUCOSE, FASTING 88 MG/DL (70-100); POTASSIUM SERUM 3.4 MEQ/L (3.5-5.1); SODIUM LEVEL 140 MEQ/L (136-145); THYROID STIMULATING HORMONE 0.681 uIU/ML (0.358-3.740); TOTAL PROTEIN 6.7 GM/DL (6.4-8.2)
[2022-01-13 12:29] LABS: TOTAL 25(OH) VITAMIN D 92.6 NG/ML (30.0-100.0)
== END ==
LOC: M WUC 08:05
PROVIDERS: ATTEND Physician Assistant
DX: E03.9 Hypothyroidism, unspecified (principal)

== ENCOUNTER 2022-05-23 10:29 | Emergency (ER) | payer OTHER ==
[~2022-05-23] VITALS: Ht 152.4 cm; Wt 73.0 kg
[2022-05-23 12:22] LABS: BASO % 0.3 % (0.0-1.0); EOS % 0.1 % (0.0-3.0); HEMATOCRIT 45.3 % (36.0-47.0); HEMOGLOBIN 15.4 g/dl (12.0-15.5); LYMPH # 0.9 10^3/uL (1.5-5.0); LYMPH % 8.3 % (24.0-44.0); MEAN CORPUSCULAR HEMOGLOBIN 29.8 pg (27.0-33.0); MEAN CORPUSCULAR VOLUME 87.6 fl (80.0-96.0); MONO # 0.7 10^3/uL (0.0-0.8); MONO % 6.4 % (2.0-8.0); NEUTROPHILS # 8.9 10^3/uL (1.5-8.5); NEUTROPHILS % 84.5 % (36.0-66.0); PLATELET COUNT, AUTOMATED 272 10^3/uL (150-450); RED BLOOD COUNT 5.17 10^6/uL (4.00-5.40); WHITE BLOOD COUNT 10.5 10^3/uL (4.0-10.0)
[2022-05-23] MEDS ORDERED: KETOROLAC 30 MG/ML 1ML VIAL IV ONE (13:00)
[2022-05-23] MEDS ORDERED: NS 500 ML IV ONE (13:00)
[2022-05-23] MEDS ORDERED: CLINDAMYCIN 900 MG in IV 1 EA IV ONE (13:00)
[2022-05-23 13:04] LABS: ERYTHROCYTE SEDIMENTATION RATE 15 mm/hr (0-20)
[2022-05-23] MEDS ORDERED: ISOVUE-370 76% 100ML VIAL As Ordered ONE (13:17)
[2022-05-23] MEDS ORDERED: CLEO300C2 PO (16:36)
[2022-05-23 16:47] VITALS: BP 116/58
== END 2022-05-23 16:56 | disposition home or self-care (01) ==
LOC: M ED 10:29
DX: L03.211 Cellulitis of face (principal); K04.7 Periapical abscess without sinus; Z88.0 Allergy status to penicillin; Z88.2 Allergy status to sulfonamides; Z79.890 Hormone replacement therapy; Z79.51 Long term (current) use of inhaled steroids; Z79.899 Other long term (current) drug therapy
CPT/HCPCS: 70487; 80047; 85025; 85652; 86140; 96374; 96375; 99284; J1100; J1885

== ENCOUNTER → 2022-06-10 | Outpatient (CLI) | payer OTHER ==
[~2022-06-10] MED LIST changes: +CLEO300C2 PO
[2022-06-10 09:52] LABS: BASO # 0.1 10^3/uL (0.0-0.2); BASO % 0.8 % (0.0-1.0); EOS # 0.2 10^3/uL (0.0-0.5); EOS % 2.8 % (0.0-3.0); HEMATOCRIT 42.3 % (36.0-47.0); HEMOGLOBIN 14.3 g/dl (12.0-15.5); LYMPH # 1.3 10^3/uL (1.5-5.0); LYMPH % 16.8 % (24.0-44.0); MEAN CORPUSCULAR HGB CONC 33.8 g/dl (32.0-36.5); MEAN CORPUSCULAR VOLUME 88.9 fl (80.0-96.0); MONO # 0.6 10^3/uL (0.0-0.8); MONO % 8.1 % (2.0-8.0); NEUTROPHILS # 5.4 10^3/uL (1.5-8.5); NEUTROPHILS % 71.2 % (36.0-66.0); PLATELET COUNT, AUTOMATED 240 10^3/uL (150-450); RED BLOOD COUNT 4.76 10^6/uL (4.00-5.40); WHITE BLOOD COUNT 7.6 10^3/uL (4.0-10.0)
[2022-06-10 10:47] LABS: ALBUMIN 3.5 G/DL (3.2-5.2); ALKALINE PHOSPHATASE 75 U/L (46-116); ALT/SGPT < 9 U/L (7.0-40); AST/SGOT 21 U/L (<34); BILIRUBIN,TOTAL 1.1 MG/DL (0.3-1.2); BLOOD UREA NITROGEN < 5 MG/DL (9-23); CALCIUM LEVEL 9.2 MG/DL (8.5-10.1); CARBON DIOXIDE LEVEL 28 MMOL/L (20-31); CHLORIDE LEVEL 102 MMOL/L (98-107); CREATININE FOR GFR 0.74 MG/DL (0.55-1.30); FREE T4 1.26 NG/DL (0.89-1.76); GLOMERULAR FILTRATION RATE > 60.0 (>60); GLUCOSE, FASTING 86 MG/DL (60-100); POTASSIUM SERUM 3.1 MMOL/L (3.5-5.1); SODIUM LEVEL 140 MMOL/L (136-145); THYROID STIMULATING HORMONE 0.293 uIU/ML (0.55-4.78); TOTAL PROTEIN 6.8 G/DL (5.7-8.2)
== END ==
LOC: M WUC 08:08
PROVIDERS: ATTEND Physician Assistant
DX: E03.9 Hypothyroidism, unspecified (principal)

== ENCOUNTER → 2023-01-13 | Outpatient (CLI) | payer OTHER ==
[2023-01-13 12:22] LABS: BLOOD UREA NITROGEN 8 MG/DL (9-23); CREATININE FOR GFR 0.79 MG/DL (0.55-1.30); GLOMERULAR FILTRATION RATE > 60.0 (>60); RHEUMATOID FACTOR QUANT 5.5 IU/ML (<14)
[2023-01-13 12:24] LABS: FOLATE 15.27 NG/ML (>5.4); THYROID STIMULATING HORMONE 1.128 uIU/ML (0.55-4.78)
[2023-01-13 12:25] LABS: VITAMIN B12 LEVEL 269 PG/ML (211-911)
[2023-01-13 12:54] LABS: HEMOGLOBIN A1c 4.6 % (4.0-6.0)
== END ==
LOC: M WUC 09:49
PROVIDERS: ATTEND Psychiatry & Neurology Neurology
DX: R29.6 Repeated falls (principal); R53.83 Other fatigue; R20.0 Anesthesia of skin

== ENCOUNTER → 2023-01-27 | Outpatient (CLI) | payer OTHER ==
[2023-01-27 12:17] LABS: BASO % 0.7 % (0.0-1.0); EOS # 0.2 10^3/uL (0.0-0.5); EOS % 2.6 % (0.0-3.0); HEMATOCRIT 44.3 % (36.0-47.0); HEMOGLOBIN 14.3 g/dl (12.0-15.5); LYMPH # 1.5 10^3/uL (1.5-5.0); LYMPH % 23.9 % (24.0-44.0); MEAN CORPUSCULAR HEMOGLOBIN 29.6 pg (27.0-33.0); MEAN CORPUSCULAR HGB CONC 32.3 g/dl (32.0-36.5); MEAN CORPUSCULAR VOLUME 91.7 fl (80.0-96.0); MONO # 0.4 10^3/uL (0.0-0.8); MONO % 6.1 % (2.0-8.0); NEUTROPHILS # 4.1 10^3/uL (1.5-8.5); NEUTROPHILS % 66.5 % (36.0-66.0); PLATELET COUNT, AUTOMATED 215 10^3/uL (150-450); RED BLOOD COUNT 4.83 10^6/uL (4.00-5.40); WHITE BLOOD COUNT 6.1 10^3/uL (4.0-10.0)
[2023-01-27 12:53] LABS: FREE T4 1.02 NG/DL (0.89-1.76); THYROID STIMULATING HORMONE 0.845 uIU/ML (0.55-4.78)
[2023-01-27 12:54] LABS: ALBUMIN 3.7 G/DL (3.2-5.2); ALKALINE PHOSPHATASE 77 U/L (46-116); ALT/SGPT < 9 U/L (7.0-40); AST/SGOT 10 U/L (<34); BILIRUBIN,TOTAL 0.6 MG/DL (0.3-1.2); BLOOD UREA NITROGEN 7 MG/DL (9-23); CALCIUM LEVEL 9.3 MG/DL (8.5-10.1); CARBON DIOXIDE LEVEL 25 MMOL/L (20-31); CHLORIDE LEVEL 109 MMOL/L (98-107); CHOLESTEROL LEVEL 167 MG/DL (<200); CHOLESTEROL RISK RATIO 2.85 (<5); CREATININE FOR GFR 0.74 MG/DL (0.55-1.30); GLOMERULAR FILTRATION RATE > 60.0 (>60); GLUCOSE, FASTING 102 MG/DL (60-100); HDL CHOLESTEROL 58.4 MG/DL (>40); LDL CHOLESTEROL 91.6 MG/DL (<100); NON-HDL-C 108.6 MG/DL; POTASSIUM SERUM 3.9 MMOL/L (3.5-5.1); SODIUM LEVEL 144 MMOL/L (136-145); TOTAL 25(OH) VITAMIN D 65.2 NG/ML (20.0-100.0); TOTAL PROTEIN 6.6 G/DL (5.7-8.2); TRIGLYCERIDES LEVEL 85 MG/DL (<150)
== END ==
LOC: M WUC 09:22
PROVIDERS: ATTEND Physician Assistant
DX: E55.9 Vitamin D deficiency, unspecified (principal); E03.9 Hypothyroidism, unspecified; Z87.74 Personal history of (corrected) congenital malformations of heart and circulatory system

== ENCOUNTER → 2023-07-21 | Outpatient (REF) | payer OTHER | LOC: M LAB REF 16:58 | PROVIDERS: ATTEND Nurse Practitioner Adult Health | DX: J45.901 Unspecified asthma with (acute) exacerbation (principal) ==

== ENCOUNTER → 2023-11-18 | Outpatient (CLI) | payer OTHER ==
[2023-11-18 12:43] LABS: BASO % 0.6 % (0.0-1.0); EOS # 0.1 10^3/uL (0.0-0.5); EOS % 2.4 % (0.0-3.0); HEMATOCRIT 43.1 % (36.0-47.0); HEMOGLOBIN 14.2 g/dl (12.0-15.5); LYMPH # 1.2 10^3/uL (1.5-5.0); LYMPH % 21.5 % (24.0-44.0); MEAN CORPUSCULAR HGB CONC 32.9 g/dl (32.0-36.5); MEAN CORPUSCULAR VOLUME 90.9 fl (80.0-96.0); MONO # 0.4 10^3/uL (0.0-0.8); MONO % 7.5 % (2.0-8.0); NEUTROPHILS # 3.7 10^3/uL (1.5-8.5); NEUTROPHILS % 67.8 % (36.0-66.0); PLATELET COUNT, AUTOMATED 235 10^3/uL (150-450); RED BLOOD COUNT 4.74 10^6/uL (4.00-5.40); WHITE BLOOD COUNT 5.5 10^3/uL (4.0-10.0)
[2023-11-18 13:14] LABS: FREE T4 1.14 NG/DL (0.89-1.76); THYROID STIMULATING HORMONE 0.033 uIU/ML (0.55-4.78)
[2023-11-18 13:17] LABS: ALBUMIN 3.6 G/DL (3.2-5.2); ALKALINE PHOSPHATASE 83 U/L (46-116); ALT/SGPT < 9 U/L (7.0-40); AST/SGOT 11 U/L (<34); BILIRUBIN,TOTAL 0.6 MG/DL (0.3-1.2); BLOOD UREA NITROGEN 6 MG/DL (9-23); CALCIUM LEVEL 9.6 MG/DL (8.5-10.1); CARBON DIOXIDE LEVEL 26 MMOL/L (20-31); CHLORIDE LEVEL 113 MMOL/L (98-107); CHOLESTEROL LEVEL 151 MG/DL (<200); CHOLESTEROL RISK RATIO 2.88 (<5); CREATININE FOR GFR 0.75 MG/DL (0.55-1.30); GLOMERULAR FILTRATION RATE > 60.0 (>60); GLUCOSE, FASTING 76 MG/DL (60-100); HDL CHOLESTEROL 52.3 MG/DL (>40); LDL CHOLESTEROL 74.3 MG/DL (<100); NON-HDL-C 98.7 MG/DL; POTASSIUM SERUM 3.6 MMOL/L (3.5-5.1); SODIUM LEVEL 145 MMOL/L (136-145); TOTAL PROTEIN 6.6 G/DL (5.7-8.2); TRIGLYCERIDES LEVEL 122 MG/DL (<150)
== END ==
LOC: M WUC 09:08
PROVIDERS: ATTEND Physician Assistant
DX: E03.9 Hypothyroidism, unspecified (principal); Z95.2 Presence of prosthetic heart valve

== ENCOUNTER → 2024-02-10 | Outpatient (CLI) | payer OTHER ==
[2024-02-10 11:54] LABS: BASO % 0.6 % (0.0-1.0); EOS # 0.2 10^3/uL (0.0-0.5); EOS % 4.1 % (0.0-3.0); HEMATOCRIT 42.5 % (36.0-47.0); HEMOGLOBIN 13.9 g/dl (12.0-15.5); LYMPH # 1.1 10^3/uL (1.5-5.0); LYMPH % 21.8 % (24.0-44.0); MEAN CORPUSCULAR HEMOGLOBIN 29.8 pg (27.0-33.0); MEAN CORPUSCULAR HGB CONC 32.7 g/dl (32.0-36.5); MEAN CORPUSCULAR VOLUME 91.2 fl (80.0-96.0); MONO # 0.3 10^3/uL (0.0-0.8); MONO % 6.4 % (2.0-8.0); NEUTROPHILS # 3.4 10^3/uL (1.5-8.5); NEUTROPHILS % 66.9 % (36.0-66.0); PLATELET COUNT, AUTOMATED 223 10^3/uL (150-450); RED BLOOD COUNT 4.66 10^6/uL (4.00-5.40); WHITE BLOOD COUNT 5.1 10^3/uL (4.0-10.0)
[2024-02-10 12:02] LABS: ALBUMIN 3.7 G/DL (3.2-5.2); ALKALINE PHOSPHATASE 75 U/L (46-116); ALT/SGPT 13 U/L (7.0-40); AST/SGOT 16 U/L (<34); BILIRUBIN,TOTAL 0.8 MG/DL (0.3-1.2); BLOOD UREA NITROGEN 7 MG/DL (9-23); CALCIUM LEVEL 9.3 MG/DL (8.5-10.1); CARBON DIOXIDE LEVEL 24 MMOL/L (20-31); CHLORIDE LEVEL 113 MMOL/L (98-107); CREATININE FOR GFR 0.81 MG/DL (0.55-1.30); GLOMERULAR FILTRATION RATE > 60.0 (>60); GLUCOSE, FASTING 70 MG/DL (60-100); POTASSIUM SERUM 3.9 MMOL/L (3.5-5.1); SODIUM LEVEL 142 MMOL/L (136-145); TOTAL PROTEIN 6.7 G/DL (5.7-8.2)
[2024-02-10 12:03] LABS: THYROID STIMULATING HORMONE 0.072 uIU/ML (0.55-4.78)
== END ==
LOC: M WUC 08:43
PROVIDERS: ATTEND Physician Assistant
DX: E03.9 Hypothyroidism, unspecified (principal)

== ENCOUNTER → 2025-01-19 | Outpatient (REF) | payer OTHER ==
[~2025-01-19] MED LIST changes: +GABA-1172 PO; -GABA-282 PO; -LEVO50CA PO; +LEVO50CA2 PO
== END ==
LOC: M LAB REF 11:45
PROVIDERS: ATTEND Student in an Organized Health Care Education/Training Program
DX: R30.0 Dysuria (principal)

== ENCOUNTER → 2025-03-06 | Outpatient (CLI) | payer OTHER ==
[2025-03-06 12:59] LABS: APPEARANCE, URINE CLOUDY (CLEAR); BACTERIA, URINE AUTO NEGATIVE (NEGATIVE); BILIRUBIN, URINE AUTO NEGATIVE (NEGATIVE); BLOOD, URINE BLOOD NEGATIVE (NEGATIVE); GLUCOSE, URINE (UA) AUTO NEGATIVE (NEGATIVE); KETONE, URINE AUTO NEGATIVE (NEGATIVE); LEUKOCYTE ESTERASE, URINE AUTO NEGATIVE (NEGATIVE); NITRITE, URINE AUTO NEGATIVE (NEGATIVE); PROTEIN, URINE AUTO NEGATIVE (NEGATIVE); RBC, URINE AUTO 1 /HPF (0-3); SPECIFIC GRAVITY URINE AUTO 1.003 (1.002-1.035); SQUAMOUS EPITHELIAL CELL UR AU 1 /HPF (0-6); UROBILINOGEN, URINE AUTO 0.2 mg/dL (0.0-2.0); WBC, URINE AUTO 1 /HPF (0-3)
== END ==
LOC: M LAB 09:34
PROVIDERS: ATTEND Physician Assistant
DX: R31.9 Hematuria, unspecified (principal)